=== PATIENT | male | born 1995 | race Caucasian/White ===

== ENCOUNTER 2023-08-09 18:38 | Emergency (ER) | payer SELFPAY ==
[2023-08-09 18:46] VITALS: BP 154/86; PULSE 110; RESP 20; TEMP 36.8; O2SAT 98
[2023-08-09 22:23] VITALS: BP 119/72; PULSE 98; RESP 15; TEMP 36.8; O2SAT 100
[2023-08-09] MEDS: ACETAMINOPHEN 500 MG TABLET 1000 MG PO (23:07)
[2023-08-09] MEDS: KETOROLAC 30 MG/ML VIAL (*BKC) IM (23:07)
[2023-08-09] MEDS: methocarbamoL 750 MG TABLET 1500 MG PO (23:07)
--- NOTE | 2023-08-09 23:13 | ED.GENADULT ---
HPI - General Adult General Chief complaint: Back Pain/Injury Stated complaint: Lower back pain Time Seen by Provider: 08/09/23 22:43 History of Present Illness HPI narrative: This is a 28-year-old male presenting ED with chief complaint of lower back pain. Patient says he hurt his back 1 year ago while at work lifting. Starting 2 days ago he started having exacerbation of that pain. He describes as a tightness in his lower back, nonradiating 5 in intensity and feels like his chronic pain. It is worse with movement. He denies fevers chills lower extremity weakness, difficulty urinating, loss of continence or history of IV drug abuse. He has been taking [id number] NSAIDs for pain. Related Data Allergies Allergy/AdvReac Type Severity Reaction Status Date / Time No Known Allergies Allergy Unverified 03/19/13 22:44 Exam Narrative: APPEARANCE: No apparent distress. Head: atraumatic. EYES: EOMI, NOSE: Atraumatic NECK/back: tightness to the paralumbar and gluteal muscles. No midline tenderness. No overlying skin changes. RESPIRATORY: No increased rate of breathing CARDIOVASCULAR: RRR, ABDOMINAL: Non-distended MUSCULOSKELETAl: No obvious deformities NEURO: Alert. Moving 4/4 extremities , ambulating without difficulty SKIN:: Warm, dry. Normal color PSYCHIATRIC: Normal affect Course Vital Signs Vital signs: Vital Signs Temperature 98.2 F 08/09/23 18:46 Pulse Rate 110 H 08/09/23 18:46 Respiratory Rate 20 08/09/23 18:46 Blood Pressure 154/86 H 08/09/23 18:46 Pulse Oximetry 98 08/09/23 18:46 Oxygen Delivery Room Air 08/09/23 18:46 Temperature 98.3 F 08/09/23 22:23 Pulse Rate 98 08/09/23 22:23 Respiratory Rate 15 08/09/23 22:23 Blood Pressure 119/72 08/09/23 22:23 Pulse Oximetry 100 08/09/23 22:23 Oxygen Delivery Room Air 08/09/23 18:46 Medical Decision Making [facility] Narrative Medical decision making narrative: -Course: 28-year-old male presenting with exacerbation of his chronic back pain. No red flags on history or physical. Treated with NSAIDs and muscle relaxers. discharged primary care follow-up. 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 -Hx from independent Sources: grandma at bedside -Interventions: Motrin Tylenol Robaxin -Shared decision making / Disposition: discharged with primary care follow-up -RX Motrin Tylenol Robaxin Vital Signs Vital Signs: Vital Signs Temperature 98.2 F 08/09/23 18:46 Pulse Rate 110 H 08/09/23 18:46 Respiratory Rate 20 08/09/23 18:46 Blood Pressure 154/86 H 08/09/23 18:46 Pulse Oximetry 98 08/09/23 18:46 Oxygen Delivery Room Air 08/09/23 18:46 Temperature 98.3 F 08/09/23 22:23 Pulse Rate 98 08/09/23 22:23 Respiratory Rate 15 08/09/23 22:23 Blood Pressure 119/72 08/09/23 22:23 Pulse Oximetry 100 08/09/23 22:23 Oxygen Delivery Room Air 08/09/23 18:46 Discharge Plan Discharge Clinical Impression: Back pain Patient Disposition: Home, Self-Care Condition: Stable Instructions: Antibiotic Form, Back Pain (ED) Additional Instructions: please follow-up with her primary care physician. Please continue with your normal activities as much as possible. Return if you develop weakness to her legs, difficulty urinating or loss of bowel control. Prescriptions: New ibuprofen 800 mg tablet 800 mg PO TID PRN (Reason: pain) 7 Days Qty: 21 0RF acetaminophen 500 mg tablet 1,000 mg PO TID PRN (Reason: dion) 7 Days Qty: 42 0RF methocarbamol 750 mg tablet 1,500 mg PO TID Qty: 42 0RF Follow-up/Referrals: PHYSICIAN,POWER MACHINE OPERATOR [Primary Care Provider] -
[2023-08-10] VITALS: BP 128/74; PULSE 96; RESP 16; O2SAT 99
== END 2023-08-10 | disposition home or self-care (01) ==
PROVIDERS: Emergency Provider Emergency Medicine
DX: M54.50 Low back pain, unspecified (principal); G89.21 Chronic pain due to trauma
CPT/HCPCS: 96372; 99283; A9270; J1885